=== PATIENT | female | born 1990 | race Two or more races ===

== ENCOUNTER 2018-04-18 12:58 | Outpatient (CLI) | payer OTHER | END 2018-04-18 13:08 | disposition home or self-care (01) | LOC: RAD 501 12:58 | DX: M54.5 Low back pain (principal); M25.552 Pain in left hip ==

== ENCOUNTER 2021-06-18 08:00 | Outpatient (CLI) | payer OTHER | END 2021-06-18 10:40 | disposition home or self-care (01) | LOC: PPH VACUNA 08:00 → EDBD 08:00 → PPH VACUNA 10:40 | PROVIDERS: ATTEND Emergency Medicine Pediatric Emergency Medicine | DX: Z23 Encounter for immunization (principal) ==

== ENCOUNTER 2022-09-10 | Outpatient (CLI) | payer OTHER | END 2022-09-10 00:15 | disposition home or self-care (01) | LOC: PPH VACUNA | PROVIDERS: ATTEND Emergency Medicine Pediatric Emergency Medicine | DX: Z23 Encounter for immunization (principal) ==

== ENCOUNTER 2025-01-10 06:41 | Outpatient (CLI) | payer OTHER ==
[2025-01-10 07:52] LABS: BASO % 0.9 % (0.1-1.2); EOS # 0.11 (0.04-0.54); EOS % 2.1 % (0.7-7.0); LYMPH # 1.85 (1.18-3.74); LYMPH % 34.8 % (19.3-53.1); MEAN PLATELET VOLUME 9.90 fl (9.4-12.4); MONO # 0.31 (0.24-0.82); MONO % 5.8 % (4.7-12.5); NEUT # 2.99 (1.56-6.13); NEUT % 56.2 % (34.0-71.1); RED CELL DISTRIBUTION WIDTH 12.1 % (11.6-14.4)
[2025-01-10 09:13] LABS: % SATURACION 11.8 % (15-50); ALT/SGPT 16.0 U/L (12-78); AST/SGOT 12.0 U/L (15-37); BILIRUBIN TOTAL 0.48 mg/dL (0.3-1.2); BUN CREA RATIO 18.0 (7.0-25.0); CREATININE SERUM 0.61 mg/dL (0.55-1.02); FE 37.0 ug/dl (50-170); GFR 111.61; GLOBULINA 3.0 G/DL (2.4-3.5); GLUCOSE FASTING 82.0 mg/dL (65-100); LDH 159.0 U/L (84-246); OSMOLALITY SERUM 282.0 MOSM/KG (275-295)
[2025-01-10 12:00] LABS: FOLIC ACID > 20.00 ng/ml (4.78-20)
[2025-01-12 09:11] LABS: HOMOCYSTEINE 6.8 umol/L (0.0-14.5)
[2025-01-12 15:08] LABS: ANTI CARDIO IGA < 9 APL U/mL (0-11); ANTI CARDIO IGG < 9 GPL U/mL (0-14); ANTI CARDIO IGM < 9 MPL U/mL (0-12)
[2025-01-13 15:08] LABS: ANTI-THROMBIN III 111 % (75-135); PROTEIN C ACTIVITY 86 % (73-180); PROTEIN S ACTIVITY 74 % (63-140)
[2025-01-14 17:07] LABS: beta 2 gly iga < 9 (0-25); beta 2 gly igg < 9 (0-20); beta 2 gly igm < 9 (0-32)
[2025-01-14 19:11] LABS: PROTEIN C ANTIGEN 76 % (60-150)
== END 2025-01-10 07:03 | disposition home or self-care (01) ==
LOC: LAB 06:41
PROVIDERS: ATTEND Internal Medicine Hematology & Oncology
DX: D50.8 Other iron deficiency anemias (principal); I10 Essential (primary) hypertension; R74.02 Elevation of levels of lactic acid dehydrogenase [LDH]; K76.89 Other specified diseases of liver; D51.3 Other dietary vitamin B12 deficiency anemia; D52.9 Folate deficiency anemia, unspecified; D68.59 Other primary thrombophilia; D68.51 Activated protein C resistance; E72.12 Methylenetetrahydrofolate reductase deficiency; E72.11 Homocystinuria; O03.9 Complete or unspecified spontaneous abortion without complication